=== PATIENT | female | born 1960 | race Caucasian/White ===

== ENCOUNTER → 2022-01-01 | Outpatient (CLI) | payer MEDICAID ==
[2022-01-01 18:20] LABS: Basophils # (A) 0.05 X 10*3/uL (0.00-0.10); Basophils % (A) 0.7 %; Eosinophils # (A) 0.85 X 10*3/uL (0.04-0.35); Eosinophils % (A) 11.2 %; HCT 39.8 % (37.2-46.3); HGB 12.6 g/dL (12.0-15.0); Immature Grans, Automated 0.3 %; Lymphocytes # (A) 1.28 X 10*3/uL (0.90-5.00); Lymphocytes % (A) 16.8 %; MCH 29.6 pg (27.0-32.0); MCHC 31.7 g/dL (32.0-37.0); MCV 93.4 fL (80.0-97.0); Mean Platelet Volume 11.1 fL (9.5-12.2); Monocytes # (A) 0.53 X 10*3/uL (0.20-1.00); NRBC Per 100 WBC 0 /100 WBCS (0.0-0.0); Neutrophils # (A) 4.88 X 10*3/uL (1.80-7.70); Platelet Count 356 X 10*3/uL (140-440); RBC 4.26 X 10*6/uL (4.10-5.20); RDW 13.5 % (11.5-14.5); WBC 7.61 X 10*3/uL (4.50-10.00)
[2022-01-01 19:05] LABS: ALT 38 U/L (8-44); AST 24 U/L (13-35); African American GFR (CKD) 72.7 (60.0-200.0); Albumin 4.4 g/dL (3.8-4.9); Albumin/Globulin Ratio 1.83 (1.60-3.17); Alkaline Phosphatase 120 U/L (41-126); BUN/Creat Ratio 31.92 Ratio (12.00-20.00); Blood Urea Nitrogen 30.9 mg/dL (9.0-27.0); Calcium 10.7 mg/dL (8.7-10.3); Carbon Dioxide 24.7 mmol/L (20.0-27.5); Chloride 104 mmol/L (96-109); Globulin 2.4 g/dL (1.6-3.3); Glucose 96 mg/dL (70-110); Non-African American GFR(CKD) 62.8 (60.0-200.0); Potassium 5.8 mmol/L (3.5-5.5); Sodium 141 mmol/L (135-145); Total Bilirubin <0.15 mg/dL (0.30-1.20); Total Protein 6.7 g/dL (6.2-8.2)
== END | disposition home or self-care (01) ==
LOC: LABWHC1 10:30
PROVIDERS: ATTEND Nurse Practitioner Family
DX: E11.9 Type 2 diabetes mellitus without complications (principal)
CPT/HCPCS: 36415; 80053; 82607; 84439; 84443; 85025

== ENCOUNTER → 2022-01-16 | Outpatient (CLI) | payer MEDICAID ==
--- NOTE | 2022-01-16 14:50 | XR ---
EXAMINATION TYPE: XR ankle complete RT DATE OF EXAM: 01/16/2022 COMPARISON: NONE HISTORY: 61 year-old female M25.579 TECHNIQUE: 3 views FINDINGS: Generalized soft tissue swelling. Periarticular osteopenia. Moderate-sized plantar heel spur. Ankle m ortise congruent. Talar dome intact. No acute fracture, subluxation, or dislocation. IMPRESSION: Generalized soft tissue swelling and osteopenia. Moderate-sized plantar heel spur. No acute osseous a bnormality seen.
== END | disposition home or self-care (01) ==
LOC: RADXRMAIN 11:20
PROVIDERS: ATTEND Nurse Practitioner Family
DX: M25.579 Pain in unspecified ankle and joints of unspecified foot (principal); R92.8 Other abnormal and inconclusive findings on diagnostic imaging of breast; M85.871 Other specified disorders of bone density and structure, right ankle and foot

== ENCOUNTER → 2022-04-06 | Outpatient (CLI) | payer MEDICAID ==
--- NOTE | 2022-04-06 16:16 | BD ---
EXAMINATION TYPE: Axial Bone Density DATE OF EXAM: 04/06/2022 COMPARISON: NONE CLINICAL HISTORY: 61 year old Female. ICD-10 CODE: M81.0 OSTEOPOROSIS Height: 62 Weight: 153.0 FRAX RISK QUESTIONS: Alcohol (3 or more units per day): no Family History (Parent hip fracture): no Glucocorticoids (More than 3mos): no (Ex: prednisone, prednisolone, methylprednisolone, dexamethasone, and hydrocortisone). History of Fracture in Adulthood: no Secondary Osteoporosis: 1. Type 1 Diabetes: no 2. Hyperthyroidism: no 3. Menopause before 45: no 4. Malnutrition: no 5. Chronic liver disease: no Rheumatoid Arthritis: no Current Tobacco Use: no RISK FACTORS HISTORY OF: Surgery to Spine/Hip(right/left)/Wrist (right/left): no Family History of Osteoporosis: no Active: yes Diet low in dairy products/other sources of calcium: no Postmenopausal woman: yes Lost more than 2 inches in height since high school: no MEDICATIONS: diabetic meds Additional History: EXAM MEASUREMENTS: Bone mineral densitometry was performed using the [employer]. Bone mineral density as measured about the Lumbar spine is: ----- L1-L4(G/cm2): 1.045 T Score Values are as follows: ----- L1: -1.9 ----- L2: -2.7 ----- L3: -0.2 ----- L4: -0.1 ----- L1-L4: -1.1 Bone mineral density : baseline Bone mineral density about the R hip (g/cm2): 0.624 Bone mineral density about the L hip (g/cm2): 0.669 T Score values are as follows: -----R Neck: -3.0 -----L Neck: -2.7 -----R Total: -2.4 -----L Total: -2.1 Bone mineral density : baseline FRAX%s: The graph provided illustrates a 15.2% chance for a major osteoporotic fx and a 4.1% chance f or the hips probability for fx in 10 years time. IMPRESSION: Osteoporosis (T Score less than -2.5). There is increased fracture risk and therapy is usually indicated based on age. Re-Screen 1-2 years. NOTE: T-SCORE=SD OF THE YOUNG ADULT MEAN.
== END | disposition home or self-care (01) ==
LOC: RADMAMWWP 15:08
PROVIDERS: ATTEND Family Medicine
DX: Z12.31 Encounter for screening mammogram for malignant neoplasm of breast (principal); M81.0 Age-related osteoporosis without current pathological fracture
CPT/HCPCS: 77063; 77067; 77080

== ENCOUNTER 2022-10-08 09:59 | Day surgery (SDC) | payer MEDICAID ==
[~2022-10-08 09:59] MED LIST: LIDOCAINE 1% (10MG/ML) FOR IV START INTRADERMA PRN
[2022-10-08 10:29] VITALS: TEMP 97.2
[2022-10-08] MEDS: LACTATED RINGERS 1,000 ML IV SCH ×2 (10:36→11:05)
[2022-10-08 10:37] LABS: Glucose,Whole Blood 90 mg/dL (70-110)
[2022-10-08] MEDS ORDERED: PROPOFOL 10 MG/ML 20 ML VIAL IV ONE (11:07)
[2022-10-08 11:48] VITALS: RESP 16
--- NOTE | 2022-10-08 11:48 | P.PCN ---
Date of Procedure: 10/08/22 Preoperative Diagnosis: Colon cancer screening Postoperative Diagnosis: Colon cancer screening, colon polyps Procedure(s) Performed: Colonoscopy with polypectomy Anesthesia: MAC Surgeon: Thania Garrett Pathology: other Condition: stable Disposition: PACU Description of Procedure: The patient presents for colon cancer screening. Colonoscopy was about 49 years of age. She's taken to the endoscopy suite where colonoscope is passed per rectum to the cecum. There is a good prep. There is a little liquid material which is easily irrigated and aspirated. 4-5 mm polyp is found on the ileocecal fat pad in its biopsied and destroyed with hot biopsy forceps. There is another diminutive when the mid transverse colon about 4 mm in size removed with hot biopsy forceps. In the mid ascending colon about 5 cm from the ileocecal fat pad there is a 1.5-2 cm sessile irregular polyp. This is removed in piecemeal manner using hot biopsy forceps and polypectomy snare. It was on a fold so not sure the entirety was removed. This will be sent for pathology. Otherwise there is no evidence of mass lesion, ulcer, stricture, diverticuli or other mucosal abnormality. No significant hemorrhoidal disease on retroflexion of the scope. She tolerated the procedure without difficulty and is taken to recovery room in satisfactory condition. We'll call with the report of the polypectomy and let her know what the follow-up should be. Likely repeat colonoscopy in one year depending on pathology. Plan - Discharge Summary Discharge Rx Participant: No New Discharge Prescriptions: No Action Cholecalciferol [Vitamin D3 (25 Mcg = 1000 Iu)] 4,000 unit PO DAILY metFORMIN HCL 500 mg PO BID amLODIPine BESYLATE 5 mg PO HS Alendronate Sodium 70 mg PO WE Unk Multi Vitamin 1 tab PO DAILY Unk Caltrate + D3 1 tab PO DAILY Dorzolamide HCl/Pf [Dorzolamide 2% Eye Drop] 1 drop BOTH EYES TID Discharge Medication List Alendronate Sodium 70 mg PO WE 10/05/22 [History] Cholecalciferol [Vitamin D3 (25 Mcg = 1000 Iu)] 4,000 unit PO DAILY 10/05/22 [History] Dorzolamide HCl/Pf [Dorzolamide 2% Eye Drop] 1 drop BOTH EYES TID 10/05/22 [History] Unk Caltrate + D3 1 tab PO DAILY 10/05/22 [History] Unk Multi Vitamin 1 tab PO DAILY 10/05/22 [History] amLODIPine BESYLATE 5 mg PO HS 10/05/22 [History] metFORMIN HCL 500 mg PO BID 10/05/22 [History] Discharge Disposition: HOME SELF-CARE
[2022-10-08 12:31] VITALS: BP 105/62; PULSE 72
== END 2022-10-08 12:40 | disposition home or self-care (01) ==
LOC: ORWHC2ENDO 09:59
PROVIDERS: ATTEND Surgery
DX: Z12.11 Encounter for screening for malignant neoplasm of colon (principal); D12.0 Benign neoplasm of cecum; D12.2 Benign neoplasm of ascending colon; D12.3 Benign neoplasm of transverse colon; I10 Essential (primary) hypertension; E11.9 Type 2 diabetes mellitus without complications; Z79.84 Long term (current) use of oral hypoglycemic drugs; M81.0 Age-related osteoporosis without current pathological fracture; Z89.429 Acquired absence of other toe(s), unspecified side; Z79.1 Long term (current) use of non-steroidal anti-inflammatories (NSAID); Z79.83 Long term (current) use of bisphosphonates; Z79.899 Other long term (current) drug therapy; Z80.3 Family history of malignant neoplasm of breast; Z80.0 Family history of malignant neoplasm of digestive organs; Z80.8 Family history of malignant neoplasm of other organs or systems; Z82.49 Family history of ischemic heart disease and other diseases of the circulatory system; Z87.891 Personal history of nicotine dependence; F10.10 Alcohol abuse, uncomplicated
CPT/HCPCS: 45384; 88305; 45385; 44392; J2704

== ENCOUNTER → 2023-01-21 | Outpatient (CLI) | payer MEDICAID ==
[2023-01-21 14:35] LABS: Basophils # (A) 0.06 X 10*3/uL (0.00-0.10); Basophils % (A) 0.9 %; Eosinophils # (A) 0.56 X 10*3/uL (0.04-0.35); Eosinophils % (A) 8.2 %; HCT 30.1 % (37.2-46.3); HGB 9.4 g/dL (12.0-15.0); Immature Grans, Automated 0.4 %; Lymphocytes # (A) 1.12 X 10*3/uL (0.90-5.00); Lymphocytes % (A) 16.4 %; MCH 28.9 pg (27.0-32.0); MCHC 31.2 g/dL (32.0-37.0); MCV 92.6 fL (80.0-97.0); Mean Platelet Volume 11.1 fL (9.5-12.2); Monocytes # (A) 0.48 X 10*3/uL (0.20-1.00); NRBC Per 100 WBC 0 /100 WBCS (0.0-0.0); Neutrophils # (A) 4.58 X 10*3/uL (1.80-7.70); Neutrophils % (A) 67.1 %; Platelet Count 285 X 10*3/uL (140-440); RBC 3.25 X 10*6/uL (4.10-5.20); RDW 12.7 % (11.5-14.5); WBC 6.83 X 10*3/uL (4.50-10.00)
[2023-01-21 15:53] LABS: African American GFR (CKD) 21.7 (60.0-200.0); Anion Gap 7.3 mmol/L (10.00-18.00); BUN/Creat Ratio 14.92 Ratio (12.00-20.00); Blood Urea Nitrogen 39.1 mg/dL (9.0-27.0); Calcium 9.5 mg/dL (8.7-10.3); Carbon Dioxide 22.8 mmol/L (20.0-27.5); Non-African American GFR(CKD) 18.7 (60.0-200.0)
[2023-01-21 16:08] LABS: Appearance,Urine Clear (Clear); Bilirubin,Urine Negative (Negative); Blood,Urine Negative (Negative); Color,Urine Yellow (Yellow); Ketones,Urine Negative (Negative); Nitrite,Urine Negative (Negative); PH, Urine 5.5 (5.0-8.0); Specific Gravity,Urine 1.013 (1.001-1.030); Urobilinogen,Urine 0.2 (0.2,1.0)
[2023-01-21 17:09] LABS: Bacteria,Urine Trace /HPF (None Seen)
== END | disposition home or self-care (01) ==
LOC: LABPAT 09:14
PROVIDERS: ATTEND Urology
DX: Z01.812 Encounter for preprocedural laboratory examination (principal); N13.30 Unspecified hydronephrosis
CPT/HCPCS: 80048; 81001; 85025; 87086

== ENCOUNTER 2023-01-29 11:59 | Day surgery (SDC) | payer MEDICAID ==
[2023-01-25 12:57] VITALS: BMI 31.2
--- NOTE | 2023-01-29 09:04 | P.HPIHPCON ---
History of Present Illness H&P Date: 01/29/23 Chief Complaint: Left ureteral dilation This is a 62-year-old female with history of dilated left distal ureter of unknown etiology and retroperitoneal lymphadenopathy. She does have chronic kidney disease with a baseline creatinine of 2.6. On CT there was no evidence of hydronephrosis. but there is dilation of the distal ureter. I discussed with her given this finding the option of doing a retrograde pyelogram with a possible ureteroscopy to evaluate this further. I discussed the risk of surgery which includes but not limited to bleeding, infection, injury to the ureter. Discussed if a tumors visualized and we'll proceed with a biopsy the same setting. Discussed with her also risk from anesthesia. She understood all the risk and agreed to proceed Consent for Procedure: I have explained the operation/procedure to the patient, including the risks, benefits, side effects, alternative therapies (including not receiving the proposed treatment or service), the likelihood of the patient achieving his/her goals, and potential recuperation problems for the procedure/sedation/analgesia, as well as any blood products, if indicated. I also explained to the patient the risks, benefits and side effects of the alternatives, as well as the risks related to not receiving the proposed procedure, care, treatment, or services. Past Medical History Past Medical History: Diabetes Mellitus, Eye Disorder, GERD/Reflux, Hypertension, Neurologic Disorder, Osteoarthritis (OA) Additional Past Medical History / Comment(s): gets injections in her eyes monthly due to swelling and bleeding behind eyes. so. neuropathy in feet and hands, BACK PAIN History of Any Multi-Drug Resistant Organisms: None Reported Additional Past Surgical History / Comment(s): removal of rt 4th toe due to infection. colonoscopy. Past Anesthesia/Blood Transfusion Reactions: No Reported Reaction Additional Past Anesthesia/Blood Transfusion Reaction / Comment(s): no blood transfusion Smoking Status: Former smoker - Past Family History Mother Family Medical History: Cancer Additional Family Medical History / Comment(s): colon and breast cancer Father Family Medical History: COPD Medications and Allergies Home Medications Medication Instructions Recorded Confirmed Type Alendronate Sodium 70 mg PO WE 10/05/22 01/25/23 History Cholecalciferol [Vitamin D3 (25 4,000 unit PO DAILY 10/05/22 01/25/23 History Mcg = 1000 Iu)] Dorzolamide HCl/Pf [Dorzolamide 2% 1 drop BOTH EYES TID 10/05/22 01/25/23 History Eye Drop] amLODIPine BESYLATE 10 mg PO HS 10/05/22 01/25/23 History Flaco/D3/Mag11/Zinc/Trend Investigator/Loc/Bor 1 tab PO DAILY 01/25/23 01/25/23 History [Caltrate 600+D Plus Tablet] Famotidine 40 mg PO HS 01/25/23 01/25/23 History Iron Unknown Dose 1 tab PO DAILY 01/25/23 01/25/23 History Multivitamins, Thera [Multivitamin 1 tab PO DAILY 01/25/23 01/25/23 History (formulary)] Allergies Allergy/AdvReac Type Severity Reaction Status Date / Time No Known Allergies Allergy Verified 01/25/23 12:20 Surgical - Exam - General no distress, no pain - Eyes normal ocular movement, no pale - ENT normal nares, normal mucosa - Respiratory normal expansion, normal respiratory effort - Abdomen Abdomen: soft, non tender Assessment and Plan Assessment: OR for cystoscopy, left retrograde pyelogram, possible ureteroscopy and possible stent insertion
[~2023-01-29 11:59] MED LIST changes: +DEXAMETHASONE SOD PHOSPHATE 4 MG/ML 1 ML VIAL IV ONE; +HYDROmorphone 0.5 MG/0.5 ML SYRINGE IVP PRN; +LACTATED RINGERS 1,000 ML IV SCH; -LIDOCAINE 1% (10MG/ML) FOR IV START INTRADERMA PRN; +ONDANSETRON 4 MG/2 ML VIAL IVP ONE
[2023-01-29 12:28] LABS: Glucose,Whole Blood 100 mg/dL (70-110)
[2023-01-29] MEDS ORDERED: MIDAZOLAM 2 MG/2 ML VIAL ONE (12:41)
[2023-01-29] MEDS ORDERED: LIDOCAINE 2% INJ 20 MG/ML (2 ML VIAL) ONE (12:41)
[2023-01-29] MEDS ORDERED: fentaNYL (PF) 50 MCG/ML 2 ML AMP ONE (12:41)
[2023-01-29] MEDS ORDERED: PROPOFOL 10 MG/ML 20 ML VIAL IV ONE (12:41)
[2023-01-29] MEDS ORDERED: ePHEDrine 50 MG/ML 1 ML VIAL ONE (12:41)
[2023-01-29] MEDS ORDERED: IOPAMIDOL-370 100ML BTL MISCELLANE ONE (13:05)
--- NOTE | 2023-01-29 13:24 | P.OP ---
Date of Procedure: 01/29/23 Preoperative Diagnosis: Left hydronephrosis Postoperative Diagnosis: Same Procedure(s) Performed: Cystoscopy, left retrograde pyelogram and ureteroscopy Implants: none Anesthesia: EMANIA Surgeon: Beck Moreno Estimated Blood Loss (ml): 1 Pathology: none sent Condition: stable Disposition: PACU Indications for Procedure: This is a 62-year-old female with history of dilated left distal ureter of unknown etiology and retroperitoneal lymphadenopathy. She does have chronic kidney disease with a baseline creatinine of 2.6. On CT there was no evidence of hydronephrosis. but there is dilation of the distal ureter. I discussed with her given this finding the option of doing a retrograde pyelogram with a possible ureteroscopy to evaluate this further. I discussed the risk of surgery which includes but not limited to bleeding, infection, injury to the ureter. Discussed if a tumors visualized and we'll proceed with a biopsy the same setting. Discussed with her also risk from anesthesia. 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 She was prepped and draped in sterile fashion and placed in dorsal lithotomy position. Cystoscopy fitted with a 21-British sheath was inserted per urethra, cystoscopy was performed which showed no abnormality within the bladder. Of note there was two ureteral orifice that were visualized on the left side. Both ureteral orifices were within close proximity to each other. Initially the anterior ureteral orifice was intubated with an 6 Fr open-ended catheter, retrograde pyelogram was performed which showed dilation of the distal ureter, but no dilation of the proximal ureter or evidence of hydronephrosis. Delayed images was obtained which showed adequate drainage of contrast. Attention was then carried to the more posterior ureteral orifice which was intubated also an open- ended catheter retrograde pyelogram which showed similar finding dilation of the distal ureter, but no dilation of the proximal ureter and the kidney. Delayed images was obtained which showed adequate drainage of contrast. At this time the semirigid ureteroscope was inserted per urethra and advanced up the left ureteral orifice, was able to advance the ureteroscope all the way up to the UPJ which showed no abnormality along the course of the ureter, there was no evidence of any narrowing or tumors. Complete ureteroscopy was performed of the second moiety which showed similar finding. At this time ureteroscope was withdrawn, pullback ureteroscopy was performed on both moieties which showed no injury to the ureter or any abnormality. The bladder was emptied and the case. Patient was awakened from anesthesia and taken to recovery, the dilated portion of the distal ureter is normal anatomical variation is no evidence of obstruction
[2023-01-29 13:29] VITALS: TEMP 97
--- NOTE | 2023-01-29 13:34 | FL ---
EXAMINATION TYPE: FL urography retrograde DATE OF EXAM: 01/29/2023 COMPARISON: CT abdomen and pelvis December 21, 2022 HISTORY: Left kidney stone. TECHNIQUE: Fluoroscopy. FINDINGS: Fluoroscopic guidance was provided during left-sided ureteroscopy procedure performed by Yulia Holland. A total of 18 seconds of fluoroscopic time was utilized during the procedure and 2 spot i mages was acquired. At least Partially duplicated collecting system is seen. Total DAP 3.4167 Gy x cm2. IMPRESSION: As Above.
[2023-01-29 14:28] VITALS: BP 137/77; PULSE 74; RESP 18
== END 2023-01-29 14:39 | disposition home or self-care (01) ==
LOC: OR 11:59
PROVIDERS: ATTEND Urology
DX: N13.30 Unspecified hydronephrosis (principal); E11.22 Type 2 diabetes mellitus with diabetic chronic kidney disease; N18.9 Chronic kidney disease, unspecified; K21.9 Gastro-esophageal reflux disease without esophagitis; M19.90 Unspecified osteoarthritis, unspecified site; Z98.890 Other specified postprocedural states; Z79.899 Other long term (current) drug therapy
CPT/HCPCS: 74420; 52351; C1758; J2250; J1100; J0690; J2405; J3010; J2704; Q9967; J2001

== ENCOUNTER → 2023-02-04 | Outpatient (CLI) | payer MEDICAID ==
--- NOTE | 2023-02-04 23:39 | CT ---
EXAMINATION TYPE: CT chest wo con CT DLP: 335.0 mGycm, Automated exposure control for dose reduction was used. DATE OF EXAM: 02/04/2023 5:33 PM COMPARISON: None CLINICAL INDICATION:Female, 62 years old with history of R59.0, Z87.891; [facility], History of tobacco use TECHNIQUE: Multiple axial images were obtained through the chest. Sagittal and coronal reformats were created for review. Contrast used: none. Oral contrast used: none. FINDINGS: LUNGS/ PLEURA: Mild centrilobular emphysema changes. There is a 4 x 4 millimeter pulmonary nodule in the right upper lobe anteriorly series 4 image 19. Middle lobe lateral streaky atelectasis/scarring. AIRWAY: Patent and unremarkable. HEART: Size within normal limits. Scattered coronary artery atherosclerosis. MEDIASTINUM: No gross evidence of adenopathy. VASCULATURE: Ectasia of the ascending thoracic aorta measuring up to 42 mm. MUSCULOSKELETAL: No acute osseous abnormalities, scattered disc degeneration changes throughout the s pine. SOFT TISSUES/LYMPH NODES: Unremarkable. LOWER NECK: No significant findings. UPPER ABDOMEN: Scattered calcifications within the pancreatic parenchyma suggesting sequela prior ramírez creatitis. IMPRESSION: 1. Consider enrolling the patient in annual low-dose lung cancer screening. 2. 4 mm right upper lobe pulmonary nodule. Short-term follow-up in one year with low-dose CT chest r ecommended. 3. Mild ascending thoracic aorta ectasia up to 4.2 cm. 4. Mild emphysema. 5. Sequela of prior pancreatitis suggested.
== END | disposition home or self-care (01) ==
LOC: RADCTMAIN 17:18
PROVIDERS: ATTEND Internal Medicine Hematology & Oncology
DX: J43.2 Centrilobular emphysema (principal); I10 Essential (primary) hypertension; E11.9 Type 2 diabetes mellitus without complications; R59.0 Localized enlarged lymph nodes; M12.9 Arthropathy, unspecified; Z87.891 Personal history of nicotine dependence
CPT/HCPCS: 71250

== ENCOUNTER → 2023-02-22 | Outpatient (CLI) | payer MEDICAID ==
--- NOTE | 2023-02-24 11:44 | CT ---
EXAMINATION TYPE: CT abdomen pelvis wo con CT DLP: 743.3 mGycm, Automated exposure control for dose reduction was used. DATE OF EXAM: 02/22/2023 1:05 PM COMPARISON: CT abdomen pelvis most recent from 12/21/2022 CLINICAL INDICATION:Female, 62 years old with history of D41.10 renal mass Z87.891 tobacco use; poor renal function. poss renal mass. TECHNIQUE: Axial CT of the abdomen and pelvis. Sagittal and coronal reformats were created on a [employer] workstation. Contrast used: None Oral contrast used: with Oral Contrast FINDINGS: LOWER CHEST: Unremarkable ABDOMEN LIVER: Unremarkable GALLBLADDER AND BILE DUCTS: Unremarkable. PANCREAS: Scattered calcifications within the pancreatic head. SPLEEN: Unremarkable. ADRENAL GLANDS: Unremarkable. KIDNEYS AND URETERS: No obstructive uropathy. There is punctate 2 mm calculi bilaterally. Evaluation is extremely limited for mass without IV contrast. Possible duplex collecting systems bilaterally. PELVIS BLADDER: Unremarkable REPRODUCTIVE: Unremarkable. ABDOMEN & PELVIS STOMACH AND BOWEL: Small hiatal hernia. No evidence of bowel obstruction. Scattered colonic diverticu la are present. PERITONEUM/RETROPERITONEUM: No evidence of pneumoperitoneum or free fluid. VASCULATURE: No evidence of aortic aneurysm. MUSCULOSKELETAL: No acute osseous abnormalities. Mild disc degeneration changes are present throughou t the thoracolumbar spine. Disc bulging at L4-L5 present. LYMPH NODES: Stable lymph nodes at the level of the left renal sinus measuring 8 mm in short axis and 8 mm in short axis. SOFT TISSUE/ABDOMINAL WALL: Small fat-containing umbilical hernia. IMPRESSION: 1. Overall stable exam with few punctate renal calculi bilaterally. No hydronephrosis. Evaluation is limited for mass without contrast. Consider MRI of the kidneys with IV contrast if there is need for evaluation of mass. 2. Stable left renal sinus lymph nodes. 3. Chronic pancreatitis changes.
== END | disposition home or self-care (01) ==
LOC: RADCTMAIN 11:17
PROVIDERS: ATTEND Internal Medicine Hematology & Oncology
DX: D41.10 Neoplasm of uncertain behavior of unspecified renal pelvis (principal); N20.0 Calculus of kidney; K86.1 Other chronic pancreatitis; I10 Essential (primary) hypertension; N28.1 Cyst of kidney, acquired; E11.9 Type 2 diabetes mellitus without complications; M12.9 Arthropathy, unspecified; R59.0 Localized enlarged lymph nodes; Z87.891 Personal history of nicotine dependence
CPT/HCPCS: 74176

== ENCOUNTER → 2023-06-14 | Outpatient (CLI) | payer MEDICAID ==
--- NOTE | 2023-06-17 09:44 | MM ---
Reason for Exam: Screening (asymptomatic). Last mammogram was performed 1 year(s) and 2 month(s) ago. Patient History: Menarche at age 13. First Full-Term at age 19. Postmenopausal. Mother had breast cancer at or over age 50. Risk Values: Massiel 5 year model risk: 2.7%. NCI Lifetime model risk: 11.4%. Prior Study Comparison: 04/06/2022 Bilateral MG 3D screening mammo w/cad, [facility]. Tissue Density: The breast tissue is heterogeneously dense. This may lower the sensitivity of mammography. Findings: Analyzed By CAD. Benign-appearing calcifications bilaterally. There is no suspicious group of microcalcifications or new suspicious mass in either breast. Overall Assessment: Benign, BI-RAD 2 Management: Screening Mammogram of both breasts in [address] [facility] will attempt to contact patient to return for supplemental views and ultrasound if indicated. Patient should continue monthly self-breast exams. A clinical breast exam by your physician is recommended on an annual basis. This exam should not preclude additional follow-up of suspicious palpable abnormalities. Note on Massiel scores and lifetime risk: 1. A Massiel score greater than 3% is considered moderate risk. If this is the case, consider specialist referral to assess eligibility for a risk reducing agent. 2. If overall lifetime risk for the development of breast cancer is 20% or higher, the patient may qualify for future screening with alternating mammogram and breast MRI. Electronically signed and approved by: Harlan Palmer DO
== END | disposition home or self-care (01) ==
LOC: RADMAMWWP 07:10
PROVIDERS: ATTEND Family Medicine
DX: Z12.31 Encounter for screening mammogram for malignant neoplasm of breast (principal); Z78.0 Asymptomatic menopausal state; Z80.3 Family history of malignant neoplasm of breast
CPT/HCPCS: 77063; 77067

== ENCOUNTER → 2023-06-21 | Outpatient (CLI) | payer MEDICAID ==
--- NOTE | 2023-06-23 15:47 | CT ---
EXAMINATION TYPE: CT ChestAbdPelvis wo con DATE OF EXAM: 06/21/2023 INDICATION: h/o enlarged lymphnodes, renal dx COMPARISON: 02/22/2023 CT DLP: 757.1 mGycm CONTRAST: Performed with Oral Contrast, no intravenous contrast TECHNIQUE: Axial images at 5 mm thick sections. Reconstructed images in the coronal plane. Delayed images through the kidneys. FINDINGS: CT CHEST: Portion of the thyroid visualized is normal. There is a 0.5 cm nodule anterior right upper lobe. Series 4 image 17, present previously. No enlarged mediastinal or hilar adenopathy is evident. The ascending aorta diameter at the level of the main pulmonary artery is 4.4 cm. The main pulmonary artery diameter at the bifurcation is 3.2 cm. Coronary artery calcification is present. Small hiatal hernia is present. CT ABDOMEN: Liver: Normal Spleen: Normal Pancreas: Normal Adrenal glands: The adrenal glands are normal. Gallbladder: Normal Kidneys: No masses are evident. No hydronephrosis is present. No cysts are present. No obstructing renal stones. There is a short segment of dilated distal left ureter without obvious etiology for ob struction. More proximal dilated ureter however is not evident. Consider contrast CT urogram for allan tional workup. Aorta: Vascular calcification is within the aorta. Inferior vena cava: Normal. CT PELVIS: Loops of bowel within the abdomen and pelvis are normal. There are loops of bowel which are incom pletely distended or lack oral contrast limiting their evaluation. Appendix: Normal as visualized. Urinary bladder: Normal. Genitourinary structures: Uterus is unremarkable. Adnexa are normal. Osseous structures: No suspicious lytic or sclerotic lesions. Scoliosis within the lumbar spine. There is a small nodule medial to the mid left kidney measuring 1.6 cm present previously, stable. Ad ditional oval and rounded densities in the left periaortic region remain present and similar to swetha rison. Lymphadenopathy remains primarily within the differential. In addition to infection, consider neoplastic process including metastasis and lymphoma. Consider PET CT for additional evaluation if cl inically appropriate. IMPRESSIONS: 1. Stable punctate lung nodule. 2. Periaortic lymphadenopathy is persistent and appears similar to comparison. Given the lack of reso lution, consider PET/CT to evaluate for neoplastic process. Reactive lymphadenopathy remains within t he differential. 3. Other some increasing prominence and length of the distal ureter adjacent to the uterus extending into the ureterovesical junction. Recommend additional workup with CT urogram.
== END | disposition home or self-care (01) ==
LOC: RADCTMAIN 11:38
PROVIDERS: ATTEND Internal Medicine Hematology & Oncology
DX: I10 Essential (primary) hypertension (principal); E11.9 Type 2 diabetes mellitus without complications; M12.9 Arthropathy, unspecified; R59.0 Localized enlarged lymph nodes; R91.1 Solitary pulmonary nodule
CPT/HCPCS: 71250; 74176

== ENCOUNTER → 2023-09-02 | Outpatient (CLI) | payer MEDICAID ==
[2023-09-02 11:22] LABS: Prothrombin Time 10.6 sec (10.0-12.5)
[2023-09-02 15:59] LABS: Hepatitis B Surface AB- Quant 3.5 mIU/mL
[2023-09-02 16:08] LABS: GGT 13 U/L (0-38); LDH 197 U/L (120-246)
[2023-09-02 16:54] LABS: Hepatitis B Core IgM Nonreactive; Hepatitis B Surface Antigen Nonreactive
[2023-09-02 17:38] LABS: EBV-EA (IgG) 1.4 AI; EBV-EBNA(IgG) >8.0; EBV-VCA (IgG) >8.0 AI; EBV-VCA (IgM) 0.2 AI
[2023-09-02 17:53] LABS: HIV 2 AB Non-Reactive (Non-Reactive); HIV AB P24 Non-Reactive (Non-Reactive); HIV P24 AG Non-Reactive (Non-Reactive)
== END | disposition home or self-care (01) ==
LOC: LABWHC1 10:13
PROVIDERS: ATTEND Transplant Surgery
DX: Z01.83 Encounter for blood typing (principal); Z11.4 Encounter for screening for human immunodeficiency virus [HIV]; Z11.3 Encounter for screening for infections with a predominantly sexual mode of transmission; Z13.228 Encounter for screening for other metabolic disorders; Z11.1 Encounter for screening for respiratory tuberculosis; N18.4 Chronic kidney disease, stage 4 (severe); Z76.82 Awaiting organ transplant status; D25.9 Leiomyoma of uterus, unspecified; B19.10 Unspecified viral hepatitis B without hepatic coma; B19.20 Unspecified viral hepatitis C without hepatic coma; R79.1 Abnormal coagulation profile
CPT/HCPCS: 36415; 82977; 83615; 85610; 85730; 86480; 86644; 86663; 86664; 86665; 86704; 86705; 86706; 86780; 86900; 86901; 87340; 87390; 87522

== ENCOUNTER → 2023-09-11 | Outpatient (CLI) | payer MEDICAID | END | disposition home or self-care (01) | LOC: LABWHC1 11:37 | PROVIDERS: ATTEND Transplant Surgery | DX: Z11.1 Encounter for screening for respiratory tuberculosis (principal); N18.4 Chronic kidney disease, stage 4 (severe); Z76.82 Awaiting organ transplant status | CPT/HCPCS: 36415; 86480 ==

== ENCOUNTER → 2023-11-28 | Outpatient (CLI) | payer BC ==
[2023-11-28 15:23] LABS: Basophils # (A) 0.03 X 10*3/uL (0.00-0.10); Basophils % (A) 0.5 %; Eosinophils # (A) 0.42 X 10*3/uL (0.04-0.35); Eosinophils % (A) 7.1 %; HCT 33.6 % (37.2-46.3); HGB 10.7 g/dL (12.0-15.0); Lymphocytes # (A) 0.77 X 10*3/uL (0.90-5.00); Lymphocytes % (A) 13.1 %; MCH 29.5 pg (27.0-32.0); MCHC 31.8 g/dL (32.0-37.0); MCV 92.6 FL (80.0-97.0); Mean Platelet Volume 10.5 FL (9.5-12.2); Monocytes # (A) 0.47 X 10*3/uL (0.20-1.00); NRBC Per 100 WBC 0 X 10*3/uL (0.00-0.01); Neutrophils # (A) 4.18 X 10*3/uL (1.80-7.70); Neutrophils % (A) 71.1 %; Platelet Count 292 X 10*3/uL (140-440); RBC 3.63 X 10*6/uL (4.10-5.20); RDW 13.9 % (11.5-14.5); WBC 5.88 X 10*3/uL (4.50-10.00)
[2023-11-28 15:39] LABS: ALT 25 U/L (8-44); AST 23 U/L (13-35); Albumin 4.5 g/dL (3.8-4.9); Albumin/Globulin Ratio 1.61 Ratio (1.60-3.17); Alkaline Phosphatase 93 U/L (41-126); BUN/Creat Ratio 11.25 Ratio (12.00-20.00); Blood Urea Nitrogen 40.5 mg/dL (9.0-27.0); Calcium 9.6 mg/dL (8.7-10.3); Carbon Dioxide 21.8 mmol/L (21.6-31.8); Chloride 108 mmol/L (96-109); Globulin 2.8 g/dL (1.6-3.3); Glucose 114 mg/dL (70-110); LDL Cholesterol,Calculated 98.9 mg/dL (0.0-131.0); Magnesium 2.3 mg/dL (1.5-2.4); Phosphorus 4.1 mg/dL (2.4-5.1); Potassium 4.9 mmol/L (3.5-5.5); Sodium 142 mmol/L (135-145); Total Bilirubin 0.4 mg/dL (0.3-1.2); Total Protein 7.3 g/dL (6.2-8.2)
== END | disposition home or self-care (01) ==
LOC: LABWHC1 09:39
PROVIDERS: ATTEND Internal Medicine Geriatric Medicine
DX: E11.22 Type 2 diabetes mellitus with diabetic chronic kidney disease (principal); N18.4 Chronic kidney disease, stage 4 (severe)
CPT/HCPCS: 36415; 80053; 80061; 83036; 83735; 84100; 84443; 85025

== ENCOUNTER → 2023-12-20 | Outpatient (CLI) | payer BC ==
--- NOTE | 2023-12-20 14:03 | CT ---
EXAMINATION: CT SCAN OF THE CHEST, ABDOMEN AND PELVIS WITHOUT INTRAVENOUS CONTRAST DATE OF EXAM: 12/20/2023 1:52 PM HISTORY: Enlarged lymph nodes. COMPARISON: None. TECHNIQUE: CT examination of the chest, abdomen and pelvis was performed without intravenous contrast . CT dose lowering techniques were used, to include: automated exposure control, adjustment for patie nt size, and/or use of iterative reconstruction. Note: The exam is limited because some types of pathology may not be adequately demonstrated due to l ack of contrast enhancement. FINDINGS: CHEST: Lungs: Normal. Pleura: Normal. Mediastinum And Jonelle: Normal. Cardiovascular: There is mild vascular calcification in the thoracic aorta without evidence of aneury smal dilation. Mild patchy coronary artery calcifications are seen. Chest Wall: Normal. ABDOMEN/PELVIS: Liver: Normal. Gallbladder/Billary: Normal. Pancreas: Normal. Spleen: Normal. Adrenal Glands: Normal. Kidneys: There is a 2 mm nonobstructing stone in the lower pole of the left kidney. The kidneys other hoff appear unremarkable GI Tract: Normal. Mesentery/Peritoneum: Normal. Vasculature: There is moderate vascular calcification throughout the abdominal aorta without evidence of aneurysmal dilation. Lymph Nodes: Normal. Abdominal Wall: Normal. Bladder: Normal. Reproductive: Normal. MUSCULOSKELETAL: Normal. IMPRESSION: 1. No acute process seen within the chest, abdomen or pelvis. 2. No lymphadenopathy identified. 3. Nonobstructing left renal stone. 4. Coronary artery calcifications.
== END | disposition home or self-care (01) ==
LOC: RADCTMAIN 11:56
PROVIDERS: ATTEND Internal Medicine Hematology & Oncology
DX: I25.10 Atherosclerotic heart disease of native coronary artery without angina pectoris (principal); N20.0 Calculus of kidney; M12.9 Arthropathy, unspecified; I10 Essential (primary) hypertension; E11.9 Type 2 diabetes mellitus without complications; R59.0 Localized enlarged lymph nodes
CPT/HCPCS: 71250; 74176

== ENCOUNTER → 2024-07-13 | Outpatient (CLI) | payer BC ==
[2024-07-13 19:22] LABS: BUN/Creat Ratio 15.79 Ratio (12.00-20.00); Calcium 9.1 mg/dL (8.7-10.3); Carbon Dioxide 18.3 mmol/L (21.6-31.8); Chloride 110 mmol/L (96-109); Glucose 124 mg/dL (70-110); Sodium 140 mmol/L (135-145)
== END | disposition home or self-care (01) ==
LOC: LABWHC1 14:18
PROVIDERS: ATTEND Nurse Practitioner Acute Care
DX: N18.4 Chronic kidney disease, stage 4 (severe) (principal)
CPT/HCPCS: 36415; 80048

== ENCOUNTER → 2024-08-05 | Outpatient (CLI) | payer BC ==
[2024-08-05 16:41] LABS: Basophils # (A) 0.04 X 10*3/uL (0.00-0.10); Basophils % (A) 0.7 %; Eosinophils # (A) 0.36 X 10*3/uL (0.04-0.35); Eosinophils % (A) 6.1 %; HCT 34.3 % (37.2-46.3); Lymphocytes # (A) 0.86 X 10*3/uL (0.90-5.00); Lymphocytes % (A) 14.6 %; MCH 27.8 pg (27.0-32.0); MCHC 32.1 g/dL (32.0-37.0); MCV 86.6 FL (80.0-97.0); Mean Platelet Volume 10.6 FL (9.5-12.2); Monocytes % (A) 6.8 %; NRBC Per 100 WBC 0 X 10*3/uL (0.00-0.01); Neutrophils # (A) 4.22 X 10*3/uL (1.80-7.70); Neutrophils % (A) 71.5 %; Platelet Count 252 X 10*3/uL (140-440); RBC 3.96 X 10*6/uL (4.10-5.20); RDW 14.3 % (11.5-14.5)
[2024-08-05 17:02] LABS: ALT 14 U/L (8-44); AST 20 U/L (13-35); Albumin 4.3 g/dL (3.8-4.9); Albumin/Globulin Ratio 1.48 Ratio (1.60-3.17); Alkaline Phosphatase 110 U/L (41-126); BUN/Creat Ratio 18.91 Ratio (12.00-20.00); Blood Urea Nitrogen 66.2 mg/dL (9.0-27.0); Calcium 9.5 mg/dL (8.7-10.3); Carbon Dioxide 16.8 mmol/L (21.6-31.8); Chloride 108 mmol/L (96-109); Chol/HDL Ratio 4.88 Ratio; Globulin 2.9 g/dL (1.6-3.3); Glucose 90 mg/dL (70-110); LDL Cholesterol,Calculated 145.4 mg/dL (0.0-131.0); Potassium 5.4 mmol/L (3.5-5.5); Sodium 140 mmol/L (135-145); Total Bilirubin 0.3 mg/dL (0.3-1.2); Total Protein 7.2 g/dL (6.2-8.2); VLDL Calculation 18.38 mg/dL (5.00-40.00)
== END | disposition home or self-care (01) ==
LOC: LABWHC1 09:25
PROVIDERS: ATTEND Internal Medicine Geriatric Medicine
DX: I12.9 Hypertensive chronic kidney disease with stage 1 through stage 4 chronic kidney disease, or unspecified chronic kidney disease (principal); E11.9 Type 2 diabetes mellitus without complications; E78.2 Mixed hyperlipidemia
CPT/HCPCS: 36415; 80053; 80061; 83036; 84443; 85025

== ENCOUNTER → 2024-09-07 | Outpatient (CLI) | payer BC ==
[2024-09-07 15:00] LABS: Basophils # (A) 0.04 X 10*3/uL (0.00-0.10); Basophils % (A) 0.5 %; Eosinophils # (A) 0.27 X 10*3/uL (0.04-0.35); Eosinophils % (A) 3.4 %; HCT 30.7 % (37.2-46.3); HGB 9.9 g/dL (12.0-15.0); Lymphocytes # (A) 0.49 X 10*3/uL (0.90-5.00); Lymphocytes % (A) 6.2 %; MCH 28.1 pg (27.0-32.0); MCHC 32.2 g/dL (32.0-37.0); MCV 87.2 FL (80.0-97.0); Mean Platelet Volume 9.9 FL (9.5-12.2); Monocytes # (A) 0.65 X 10*3/uL (0.20-1.00); Monocytes % (A) 8.2 %; NRBC Per 100 WBC 0 X 10*3/uL (0.00-0.01); Neutrophils # (A) 6.42 X 10*3/uL (1.80-7.70); Neutrophils % (A) 81.3 %; Platelet Count 333 X 10*3/uL (140-440); RBC 3.52 X 10*6/uL (4.10-5.20); RDW 13.8 % (11.5-14.5)
[2024-09-07 15:18] LABS: % Iron Saturation 7.76 (12.00-45.00); Blood Urea Nitrogen 41.3 mg/dL (9.0-27.0); Calcium 8.9 mg/dL (8.7-10.3); Carbon Dioxide 22.5 mmol/L (21.6-31.8); Chloride 106 mmol/L (96-109); Glucose 113 mg/dL (70-110); Iron 18 UG/DL (50-170); Phosphorus 3.5 mg/dL (2.4-5.1); Potassium 4.3 mmol/L (3.5-5.5); Sodium 141 mmol/L (135-145); Total Iron Binding Capacity 232 UG/DL (228-460)
[2024-09-07 15:24] LABS: Appearance,Urine Clear (Clear); Bilirubin,Urine Negative (Negative); Blood,Urine Negative (Negative); Color,Urine Yellow (Yellow); Ketones,Urine Negative (Negative); Nitrite,Urine Negative (Negative); PH, Urine 7.5; Specific Gravity,Urine 1.013 (1.001-1.030); Urobilinogen,Urine 0.2 E.U./DL
[2024-09-07 15:31] LABS: Bacteria,Urine None Seen (None Seen)
== END | disposition home or self-care (01) ==
LOC: LABWHC1 10:45
PROVIDERS: ATTEND Internal Medicine Nephrology
DX: N18.4 Chronic kidney disease, stage 4 (severe) (principal)
CPT/HCPCS: 36415; 80048; 81001; 82043; 82570; 82728; 83540; 83550; 83970; 84100; 85025

== ENCOUNTER → 2024-10-13 | Outpatient (CLI) | payer MEDICARE, BC ==
[2024-10-13 10:00] LABS: INR 0.9 (<1.2); Prothrombin Time 10.5 sec (10.0-12.5)
[2024-10-13 15:54] LABS: HCT 32.8 % (37.2-46.3); HGB 10.2 g/dL (12.0-15.0); MCH 28.8 pg (27.0-32.0); MCHC 31.1 g/dL (32.0-37.0); MCV 92.7 FL (80.0-97.0); Mean Platelet Volume 10.4 FL (9.5-12.2); NRBC Per 100 WBC 0 X 10*3/uL (0.00-0.01); Platelet Count 314 X 10*3/uL (140-440); RBC 3.54 X 10*6/uL (4.10-5.20); RDW 14.7 % (11.5-14.5)
[2024-10-13 15:56] LABS: ALT 11 U/L (8-44); AST 17 U/L (13-35); Albumin 4.2 g/dL (3.8-4.9); Albumin/Globulin Ratio 1.56 Ratio (1.60-3.17); Alkaline Phosphatase 98 U/L (41-126); BUN/Creat Ratio 10.78 Ratio (12.00-20.00); Blood Urea Nitrogen 38.8 mg/dL (9.0-27.0); Calcium 9.3 mg/dL (8.7-10.3); Carbon Dioxide 20.9 mmol/L (21.6-31.8); Chloride 107 mmol/L (96-109); GGT 10 U/L (0-38); Globulin 2.7 g/dL (1.6-3.3); Glucose 92 mg/dL (70-110); LDH 245 U/L (120-246); Potassium 4.1 mmol/L (3.5-5.5); Sodium 141 mmol/L (135-145); Total Bilirubin 0.4 mg/dL (0.3-1.2); Total Protein 6.9 g/dL (6.2-8.2)
[2024-10-13 15:59] LABS: Hepatitis B Core IgM Nonreactive (Nonreactive); Hepatitis B Surface Antigen Nonreactive (Nonreactive); Hepatitis C IgG Antibody Nonreactive (Nonreactive)
[2024-10-13 16:03] LABS: Hepatitis B Surface AB- Quant 3.5 mIU/mL
[2024-10-13 21:18] LABS: HIV 2 AB Non-Reactive (Non-Reactive); HIV AB P24 Non-Reactive (Non-Reactive); HIV P24 AG Non-Reactive (Non-Reactive)
[2024-10-15 05:53] LABS: Cotinine <2.0 ng/mL (<2.0); Nicotine <2.0 ng/mL (<2.0)
== END | disposition home or self-care (01) ==
LOC: LABWHC1 07:52
PROVIDERS: ATTEND Transplant Surgery
DX: Z13.228 Encounter for screening for other metabolic disorders (principal); Z13.220 Encounter for screening for lipoid disorders; Z11.1 Encounter for screening for respiratory tuberculosis; Z11.3 Encounter for screening for infections with a predominantly sexual mode of transmission; Z11.4 Encounter for screening for human immunodeficiency virus [HIV]; B25.9 Cytomegaloviral disease, unspecified; N18.4 Chronic kidney disease, stage 4 (severe); B19.10 Unspecified viral hepatitis B without hepatic coma; E11.65 Type 2 diabetes mellitus with hyperglycemia; D53.9 Nutritional anemia, unspecified; F17.200 Nicotine dependence, unspecified, uncomplicated; R79.1 Abnormal coagulation profile; Z76.82 Awaiting organ transplant status
CPT/HCPCS: 86803; 86705; 87522; 80053; 82465; 82977; 83615; 85027; 85610; 85730; 86706; 87340; 86644; 86704; 86780; 86480; 87390; 83036; 36415; G0480; 80323

== ENCOUNTER → 2025-06-03 | Outpatient (CLI) | payer MEDICARE, BC ==
--- NOTE | 2025-06-03 08:36 | US ---
EXAMINATION TYPE: US abdomen complete DATE OF EXAM: 06/03/2025 COMPARISON: NONE CLINICAL INDICATION: Female, 64 years old with history of N18.4,Z76.82 AWAITING ORGAN TRANSPLANT STAT US; CKD 5 on kidney transplant list. TECHNIQUE: Grayscale and color Doppler imaging of the abdomen was performed. FINDINGS: EXAM MEASUREMENTS: Liver Length: 14.9 cm Gallbladder Wall: .2 cm CBD: .7 cm, color Doppler imaging was utilized to isolate the common bile duct for measurement. Spleen: 9.0 cm Right Kidney: 11.4 x 4.7 x 3.8 cm Left Kidney: 9.9 x 4.3 x 4.0 cm QUALITY CONTROL HEAD NOTES: Pancreas: Obscured by bowel gas Liver: wnl, no dilated ducts, masses or cysts. Gallbladder: No stones seen Evidence for sonographic Nix's sign: No CBD: wnl Spleen: Granulomas seen. Right Kidney: wnl, No hydronephrosis, calculi or masses seen Left Kidney: wnl, No hydronephrosis, calculi or masses seen Upper IVC: wnl Abd Aorta: Proximal obscured by bowel gas. Findings: IMPRESSION: No significant abnormality. [facility], , 06/03/2025 8:34 AM
== END | disposition home or self-care (01) ==
LOC: RADUSWWP 07:42
PROVIDERS: ATTEND Internal Medicine Geriatric Medicine
DX: N18.4 Chronic kidney disease, stage 4 (severe) (principal); Z76.82 Awaiting organ transplant status
CPT/HCPCS: 76700